=== PATIENT | female | born 1965 | race Caucasian/White ===

== ENCOUNTER → 2024-02-11 16:23 | Outpatient (REF) | payer OTHER, SELFPAY | LOC: WDC 16:23 | PROVIDERS: ATTENDING PHYSICIAN Student in an Organized Health Care Education/Training Program | DX: Z12.31 Encounter for screening mammogram for malignant neoplasm of breast (principal) | CPT/HCPCS: 77063; 77067 ==

== ENCOUNTER → 2024-02-20 09:02 | Outpatient (REF) | payer OTHER, SELFPAY | LOC: WDC 09:02 | PROVIDERS: ATTENDING PHYSICIAN Student in an Organized Health Care Education/Training Program | DX: R92.8 Other abnormal and inconclusive findings on diagnostic imaging of breast (principal) | CPT/HCPCS: 76642 ==

== ENCOUNTER → 2024-07-28 16:33 | Outpatient (REF) | payer OTHER, SELFPAY | LOC: RAD 16:33 | PROVIDERS: ATTENDING PHYSICIAN Physician Assistant; FAMILY PHYSICIAN Student in an Organized Health Care Education/Training Program | DX: M06.00 Rheumatoid arthritis without rheumatoid factor, unspecified site (principal); M25.50 Pain in unspecified joint | CPT/HCPCS: 73030; 73130; 73630 ==

== ENCOUNTER → 2024-10-02 09:29 | Outpatient (REF) | payer OTHER, SELFPAY | LOC: HWRAD 09:29 | PROVIDERS: ATTENDING PHYSICIAN Student in an Organized Health Care Education/Training Program | DX: R07.0 Pain in throat (principal) | CPT/HCPCS: 76536 ==

== ENCOUNTER → 2025-02-11 16:21 | Outpatient (REF) | payer OTHER, SELFPAY | LOC: WDC 16:21 | PROVIDERS: ATTENDING PHYSICIAN Student in an Organized Health Care Education/Training Program | DX: Z12.31 Encounter for screening mammogram for malignant neoplasm of breast (principal) | CPT/HCPCS: 77063; 77067 ==